=== PATIENT | female | born 1945 | race Caucasian/White ===

== ENCOUNTER → 2017-05-07 | Outpatient (CLI) | payer MEDICARE, OTHER ==
[~2017-05-07] MED LIST: ACTOS 30 MG TAB30 MG; CARVEDILOL12.5 MG; GLYBURIDE 3 MG M3 M1; LASIX 40 MG TAB40 M1; ONGLYZA2.5 MG PO; PERCOCET 5-3251 EACH PO; PHENERGAN 25 MG25 M1 PO; PRADAXA150 MG; PRILOSEC40 MG PO; SIMVASTATIN20 MG; VASOTEC 2.5MG2.5 MG; VICODIN 5-5001 EACH PO
== END ==
LOC: M.RAD 11:57
DX: R05 Cough (principal); R09.89 Other specified symptoms and signs involving the circulatory and respiratory systems; R50.9 Fever, unspecified